=== PATIENT | female | born 1985 | race Caucasian/White ===

== ENCOUNTER → 2016-09-24 | Outpatient (CLI) | payer OTHER ==
--- NOTE | 2016-09-25 07:04 | MM ---
Reason for exam: clinical finding. Baseline mammogram. Indicated problem(s): palpable abnormality and pain in the right breast. Physical Findings: Nurse did not find any significant physical abnormalities on exam. MG 3D Diag Mammo W/Cad BLAS Bilateral CC and MLO view(s) were taken. The breast tissue is extremely dense which could obscure a lesion on mammography. Palpable marker at 1 o'clock on the right breast. Dense tissues on both sides. These results were verbally communicated with the patient and result sheet given to the patient on 09/24/16. ASSESSMENT: Incomplete: need additional imaging evaluation, BI-RAD 0 RECOMMENDATION: Ultrasound of the right breast. (targeted to palpable)
--- NOTE | 2016-09-25 07:07 | USB ---
Reason for exam: additional evaluation requested from abnormal screening. US Breast Limited RT Right breast ultrasound demonstrates a 0.3 x 0.3 x 0.1cm oval lesion too small to characterize at 12:30. Palpable marker at 12:30. Scanning from 11-3 o'clock. Otherwise, no solid or cystic lesion is seeen. Dense tissues are demonstrated. These results were verbally communicated with the patient and result sheet given to the patient on 09/24/16. ASSESSMENT: Benign, BI-RAD 2 RECOMMENDATION: Routine screening mammogram of both breasts at age 40. (unless clinical indication to start sooner) Manage on a clinical basis with regard to any suspicious palpable areas.
== END | disposition home or self-care (01) ==
LOC: RADMAMWWP 13:45
PROVIDERS: ATTEND Family Medicine
DX: N63 Unspecified lump in breast (principal); N64.4 Mastodynia
CPT/HCPCS: 76642; G0204; G0279

== ENCOUNTER → 2016-11-13 | Outpatient (CLI) | payer OTHER ==
--- NOTE | 2016-11-13 17:42 | MR ---
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 There is no evidence of acute ischemia. The ventricles, basal cisterns, and sulci overlying the conv exities are consistent with the patient's age. There is no mass effect. Cerebellar tonsils are low-lying in position measuring approximately 4 mm below the foramen magnum. T here is no tonsillar beaking. Sella turcica has a normal appearance. Changes of chronic sinusitis noted. No sizable areas of abnormal signal within the white matter. No cerebellopontine angle mass. IMPRESSION: 1. Low-lying cerebellar tonsils measuring 4 mm below the level of the foramen magnum. Correlate clini sixto. No tonsillar beaking. 2. Changes of mild chronic sinusitis
== END ==
LOC: RADMRIMAIN 14:59
PROVIDERS: ATTEND Nurse Practitioner Women's Health
DX: Q07.00 Arnold-Chiari syndrome without spina bifida or hydrocephalus (principal)
CPT/HCPCS: 70551

== ENCOUNTER 2017-03-21 11:31 | Emergency (ER) | payer OTHER ==
[2017-03-21 11:38] VITALS: RESP 18
[2017-03-21] MEDS ORDERED: SODIUM CHLORIDE 0.9% 500 ML IV STA (11:45)
--- NOTE | 2017-03-21 11:57 | ED ---
General Adult HPI - General Chief complaint: Dizziness Stated complaint: DIZZINESS, FAST HEART RATE Time Seen by Provider: 03/21/17 11:35 Source: patient, RN notes reviewed Mode of arrival: wheelchair Limitations: no limitations - History of Present Illness Initial comments: This is a 31-year-old female presents emergency Department stating that she has been dizzy for the last 5 days and feeling her heart race. Patient states she' s here today because she brought her mother to the emergency department and thought all she is here she should be checked out. Patient denies any chest pain or shortness of breath. Patient states she went to urgent care couple days ago and they stated that she was dehydrated since she's been drinking quite a bit of water so she doesn't believe she is dehydrated and more but she still is dizzy and having palpitations. Patient denies any fever chills or cough. Patient denies abdominal pain patient denies nausea vomiting diarrhea. Patient denies any recent fever chills or cough. Patient denies any near syncopal episode. - Related Data Home Medications Medication Instructions Recorded Confirmed HYDROcodone/APAP 10-325MG [[place] 0.5 - 1 tab PO TID PRN 12/25/13 03/21/17 10-325] Diphenox-Atrop 2.5-0.025 mg 1 tab PO QID PRN 09/15/15 03/21/17 [Lomotil] Ibuprofen [Motrin] 1,200 mg PO DAILY PRN 03/21/17 03/21/17 Probiotic/Prebiotic/Cranberry 1 tab PO DAILY 03/21/17 03/21/17 diphenhydrAMINE [Benadryl] 25 mg PO QID PRN 03/21/17 03/21/17 Allergies Allergy/AdvReac Type Severity Reaction Status Date / Time adhesive Allergy Rash/Hives Verified 03/21/17 11:52 Penicillins Allergy Rash/Hives Verified 03/21/17 11:52 tramadol Allergy Unknown Verified 03/21/17 11:52 aspirin AdvReac Nausea & Verified 03/21/17 11:52 Vomiting & Diarrhea Sulfa (Sulfonamide AdvReac Nausea & Verified 03/21/17 11:52 Antibiotics) Vomiting sulfamethoxazole AdvReac Nausea & Verified 03/21/17 11:52 [From Bactrim] Vomiting trimethobenzamide HCl AdvReac Nausea & Verified 03/21/17 11:52 [From Tigan] Vomiting trimethoprim [From Bactrim] AdvReac Nausea & Verified 03/21/17 11:52 Vomiting Review of Systems ROS Statement: Those systems with pertinent positive or pertinent negative responses have been documented in the HPI. ROS Other: All systems not noted in ROS Statement are negative. Past Medical History Past Medical History: Asthma, Chest Pain / Angina, GERD/Reflux, Neurologic Disorder, Osteoarthritis (OA), Skin Disorder Additional Past Medical History / Comment(s): HYPOTENSIVE History of Any Multi-Drug Resistant Organisms: None Reported Past Surgical History: Adenoidectomy, Appendectomy, Cholecystectomy, Tonsillectomy, Tubal Ligation Past Anesthesia/Blood Transfusion Reactions: No Reported Reaction Past Psychological History: Anxiety, Depression Smoking Status: Current every day smoker Past Alcohol Use History: None Reported Past Drug Use History: None Reported General Exam - General Exam Comments Initial Comments: GENERAL: Patient is well-developed and well-nourished. Patient is nontoxic and well- hydrated and is in no acute distress. ENT: Neck is soft and supple. No significant lymphadenopathy is noted. Oropharynx is clear. Moist mucous membranes. Neck has full range of motion without eliciting any pain. EYES: The sclera were anicteric and conjunctiva were pink and moist. Extraocular movements were intact and pupils were equal round and reactive to light. Eyelids were unremarkable. PULMONARY: Unlabored respirations. Good breath sounds bilaterally. No audible rales rhonchi or wheezing was noted. CARDIOVASCULAR: Heart is racing at about 110 beats a minute ABDOMEN: Soft and nontender with normal bowel sounds. No palpable organomegaly was noted. There is no palpable pulsatile mass. SKIN: Skin is clear with no lesions or rashes and otherwise unremarkable. NEUROLOGIC: Patient is alert and oriented x3. Cranial nerves II through XII are grossly intact. Motor and sensory are also intact. Normal speech, volume and content. Symmetrical smile. MUSCULOSKELETAL: Normal extremities with adequate strength and full range of motion. No lower extremity swelling or edema. No calf tenderness. LYMPHATICS: No significant lymphadenopathy is noted PSYCHIATRIC: Normal psychiatric evaluation. Normal interpersonal interactions appears functionally intact in deals appropriately with others. Patient appears anxious. Limitations: no limitations Course Vital Signs 03/21/17 11:36 Temperature 98.6 F Pulse Rate 110 H Respiratory 18 Rate Blood Pressure 113/62 O2 Sat by Pulse 99 Oximetry Medical Decision Making - Medical Decision Making EKG shows normal sinus rhythm at 87 bpm AK interval is 144 Gladys is 72 QT interval 356 QTC is 428. Patient's EKG shows no ST segment elevation or depression or T wave abnormalities are noted. - Lab Data Result diagrams: 03/21/17 12:00 03/21/17 12:00 Lab Results 03/21/17 03/21/17 03/21/17 Range/Units 12:00 12:00 12:00 WBC 6.4 (3.8-10.6) k/uL RBC 4.50 (3.80-5.40) m/uL Hgb 14.8 (11.4-16.0) gm/dL Hct 42.8 (34.0-46.0) % MCV 95.1 (80.0-100.0) fL MCH 33.0 (25.0-35.0) pg MCHC 34.7 (31.0-37.0) g/dL RDW 12.9 (11.5-15.5) % Plt Count 283 (150-450) k/uL Neutrophils % 54 % Lymphocytes % 36 % Monocytes % 5 % Eosinophils % 1 % Basophils % 0 % Neutrophils # 3.5 (1.3-7.7) k/uL Lymphocytes # 2.4 (1.0-4.8) k/uL Monocytes # 0.3 (0-1.0) k/uL Eosinophils # 0.1 (0-0.7) k/uL Basophils # 0.0 (0-0.2) k/uL Sodium 141 (137-145) mmol/L Potassium 3.8 (3.5-5.1) mmol/L Chloride 108 H (98-107) mmol/L Carbon Dioxide 25 (22-30) mmol/L Anion Gap 8 mmol/L BUN 9 (7-17) mg/dL Creatinine 0.51 L (0.52-1.04) mg/dL Est GFR (MDRD) Af Amer >60 (>60 ml/min/1.73 sqM) Est GFR (MDRD) Non-Af >60 (>60 ml/min/1.73 sqM) Glucose 90 (74-99) mg/dL Calcium 9.7 (8.4-10.2) mg/dL Troponin I <0.012 (0.000-0.034) ng/mL TSH 1.340 (0.465-4.680) mIU/L Free T4 1.38 (0.78-2.19) ng/dL Urine Color Urine Appearance (Clear) Urine pH (5.0-8.0) Ur Specific [place] (1.001-1.035) Urine Protein (Negative) Urine Glucose (UA) (Negative) Urine Ketones (Negative) Urine Blood (Negative) Urine Nitrite (Negative) Urine Bilirubin (Negative) Urine Urobilinogen (<2.0) mg/dL Ur Leukocyte Esterase (Negative) Urine WBC (0-5) /hpf Ur Squamous Epith Cells (0-4) /hpf Amorphous Sediment (None) /hpf Urine Bacteria (None) /hpf Urine HCG, Qual (Not Detectd) Urine Opiates Screen (NotDetected) Ur Oxycodone Screen (NotDetected) Urine Methadone Screen (NotDetected) Ur Propoxyphene Screen (NotDetected) Ur Barbiturates Screen (NotDetected) U Tricyclic Antidepress (NotDetected) Ur Phencyclidine Scrn (NotDetected) Ur Amphetamines Screen (NotDetected) U Methamphetamines Scrn (NotDetected) U Benzodiazepines Scrn (NotDetected) Urine Cocaine Screen (NotDetected) U Marijuana (THC) Screen (NotDetected) 03/21/17 03/21/17 Range/Units 12:00 12:00 WBC (3.8-10.6) k/uL RBC (3.80-5.40) m/uL Hgb (11.4-16.0) gm/dL Hct (34.0-46.0) % MCV (80.0-100.0) fL MCH (25.0-35.0) pg MCHC (31.0-37.0) g/dL RDW (11.5-15.5) % Plt Count (150-450) k/uL Neutrophils % % Lymphocytes % % Monocytes % % Eosinophils % % Basophils % % Neutrophils # (1.3-7.7) k/uL Lymphocytes # (1.0-4.8) k/uL Monocytes # (0-1.0) k/uL Eosinophils # (0-0.7) k/uL Basophils # (0-0.2) k/uL Sodium (137-145) mmol/L Potassium (3.5-5.1) mmol/L Chloride (98-107) mmol/L Carbon Dioxide (22-30) mmol/L Anion Gap mmol/L BUN (7-17) mg/dL Creatinine (0.52-1.04) mg/dL Est GFR (MDRD) Af Amer (>60 ml/min/1.73 sqM) Est GFR (MDRD) Non-Af (>60 ml/min/1.73 sqM) Glucose (74-99) mg/dL Calcium (8.4-10.2) mg/dL Troponin I (0.000-0.034) ng/mL TSH (0.465-4.680) mIU/L Free T4 (0.78-2.19) ng/dL Urine Color Light Yellow Urine Appearance Cloudy H (Clear) Urine pH 7.5 (5.0-8.0) Ur Specific [place] 1.004 (1.001-1.035) Urine Protein Negative (Negative) Urine Glucose (UA) Negative (Negative) Urine Ketones Negative (Negative) Urine Blood Negative (Negative) Urine Nitrite Negative (Negative) Urine Bilirubin Negative (Negative) Urine Urobilinogen <2.0 (<2.0) mg/dL Ur Leukocyte Esterase Negative (Negative) Urine WBC 1 (0-5) /hpf Ur Squamous Epith Cells 3 (0-4) /hpf Amorphous Sediment Few H (None) /hpf Urine Bacteria Rare H (None) /hpf Urine HCG, Qual Not Detected (Not Detectd) Urine Opiates Screen Detected H (NotDetected) Ur Oxycodone Screen Not Detected (NotDetected) Urine Methadone Screen Not Detected (NotDetected) Ur Propoxyphene Screen Not Detected (NotDetected) Ur Barbiturates Screen Not Detected (NotDetected) U Tricyclic Antidepress Not Detected (NotDetected) Ur Phencyclidine Scrn Not Detected (NotDetected) Ur Amphetamines Screen Not Detected (NotDetected) U Methamphetamines Scrn Not Detected (NotDetected) U Benzodiazepines Scrn Not Detected (NotDetected) Urine Cocaine Screen Not Detected (NotDetected) U Marijuana (THC) Screen Not Detected (NotDetected) Disposition Clinical Impression: Palpitations Disposition: HOME SELF-CARE Condition: Good Instructions: Palpitations (ED) Referrals: Flavio Del Real Jr, DO [Primary Care Provider] - 1-2 days
[2017-03-21 12:21] LABS: Basophils % (A) 0 %; CH 32.8; CHCM 34.6; Eosinophils # (A) 0.1 k/uL (0-0.7); Eosinophils % (A) 1 %; HCT 42.8 % (34.0-46.0); HDW 2.14; HGB 14.8 gm/dL (11.4-16.0); Luc # (Auto) 0.15; Luc % (Auto) 2; Lymphocytes # (A) 2.4 k/uL (1.0-4.8); Lymphocytes % (A) 36 %; MCHC 34.7 g/dL (31.0-37.0); MCV 95.1 fL (80.0-100.0); Mean Platelet Volume 6.9; Monocytes # (A) 0.3 k/uL (0-1.0); Monocytes % (A) 5 %; Neutrophils # (A) 3.5 k/uL (1.3-7.7); Neutrophils % (A) 54 %; RDW 12.9 % (11.5-15.5); WBC 6.4 k/uL (3.8-10.6); WBC (Perox) 6.67
--- NOTE | 2017-03-21 12:24 | XR ---
EXAMINATION TYPE: XR chest 2V DATE OF EXAM: 03/21/2017 COMPARISON: Chest x-ray September 20, 2009. HISTORY: Palpitations. TECHNIQUE: Frontal and lateral views of the chest are obtained. FINDINGS: There is no focal air space opacity, pleural effusion, or pneumothorax seen. The cardiac silhouette size is within normal limits. The osseous structures are intact. Cholecystectomy clips a re noted on lateral view. IMPRESSION: No acute cardiopulmonary process.
[2017-03-21 12:29] LABS: Anion Gap 8 mmol/L; Blood Urea Nitrogen 9 mg/dL (7-17); Calcium 9.7 mg/dL (8.4-10.2); Carbon Dioxide 25 mmol/L (22-30); Chloride 108 mmol/L (98-107); Glucose 90 mg/dL (74-99); Non-African American GFR(MDRD) >60 (>60 ml/min/1.73 sqM); Potassium 3.8 mmol/L (3.5-5.1); Sodium 141 mmol/L (137-145)
[2017-03-21 12:30] LABS: Amorphous Sediment,Urine Few /hpf; Appearance,Urine Cloudy (Clear); Bacteria,Urine Rare /hpf; Bilirubin,Urine Negative (Negative); Glucose,Urine (UA) Negative (Negative); Ketones,Urine Negative (Negative); Leukocyte Esterase,Urine Negative (Negative); Nitrite,Urine Negative (Negative); PH, Urine 7.5 (5.0-8.0); Particle Count 4209; Protein,Urine Negative (Negative); Specific Gravity,Urine 1.004 (1.001-1.035); Squamous Epithelial Cell,Urine 3 /hpf (0-4); UA Billing (MACRO vs. MICRO) MICRO; Urobilinogen,Urine <2.0 mg/dL (<2.0); WBC,Urine 1 /hpf (0-5)
[2017-03-21 13:35] VITALS: BP 98/57; PULSE 78; TEMP 98.9
== END 2017-03-21 13:36 | disposition home or self-care (01) ==
LOC: EC 11:31
DX: R00.2 Palpitations (principal); R42 Dizziness and giddiness; F17.200 Nicotine dependence, unspecified, uncomplicated; Z79.899 Other long term (current) drug therapy; Z88.0 Allergy status to penicillin; Z88.1 Allergy status to other antibiotic agents; Z88.2 Allergy status to sulfonamides; Z88.5 Allergy status to narcotic agent; Z88.6 Allergy status to analgesic agent; Z88.8 Allergy status to other drugs, medicaments and biological substances; Z91.09 Other allergy status, other than to drugs and biological substances
CPT/HCPCS: 36415; 71020; 80048; 80306; 81001; 81025; 84439; 84443; 84484; 85025; 93005; 96360; 99284

== ENCOUNTER → 2018-04-08 | Outpatient (CLI) | payer OTHER ==
[2018-04-08 09:53] LABS: Basophils % (A) 0 %; Eosinophils # (A) 0.1 k/uL (0-0.7); Eosinophils % (A) 2 %; HGB 15.2 gm/dL (11.4-16.0); Lymphocytes # (A) 2.1 k/uL (1.0-4.8); Lymphocytes % (A) 31 %; MCH 31.7 pg (25.0-35.0); MCHC 32.3 g/dL (31.0-37.0); MCV 98.1 fL (80.0-100.0); Mean Platelet Volume 6.4; Monocytes # (A) 0.3 k/uL (0-1.0); Monocytes % (A) 5 %; Neutrophils # (A) 4.1 k/uL (1.3-7.7); Neutrophils % (A) 61 %; Platelet Count 359 k/uL (150-450); RBC 4.79 m/uL (3.80-5.40); RDW 12.4 % (11.5-15.5); WBC 6.8 k/uL (3.8-10.6)
[2018-04-08 10:00] LABS: ALT 22 U/L (9-52); AST 20 U/L (14-36); Anion Gap 9 mmol/L; Blood Urea Nitrogen 15 mg/dL (7-17); Carbon Dioxide 22 mmol/L (22-30); Chloride 110 mmol/L (98-107); Cholesterol 157 mg/dL (<200); Glucose 90 mg/dL (74-99); HDL Cholesterol 65 mg/dL (40-60); LDL Cholesterol,Calculated 78 mg/dL (0-99); Potassium 4.6 mmol/L (3.5-5.1); Sodium 141 mmol/L (137-145); Triglycerides 68 mg/dL (<150)
== END | disposition home or self-care (01) ==
LOC: LABWHC1 08:56
PROVIDERS: ATTEND Family Medicine
DX: F41.1 Generalized anxiety disorder (principal); M79.7 Fibromyalgia; R63.0 Anorexia
CPT/HCPCS: 36415; 80048; 80061; 84443; 84450; 84460; 85025

== ENCOUNTER → 2019-01-06 | Outpatient (CLI) | payer OTHER ==
--- NOTE | 2019-01-06 11:08 | MM ---
Reason for exam: clinical finding. Last mammogram was performed 2 years and 3 months ago. History: Family history of breast cancer in grandmother at age 19. Excisional biopsy of the right breast, 2003. Physical Findings: Nurse Summary: less than 0.5cm nodule in the right breast at 9 o'clock (nurse kp). MG 3D Diag Mammo W/Cad RT CC and MLO view(s) were taken of the right breast. Prior study comparison: September 24, 2016, bilateral MG 3d diag mammo w/cad BLAS. The breast tissue is extremely dense which could obscure a lesion on mammography. No suspicious abnormality. These results were verbally communicated with the patient and result sheet given to the patient on 01/06/19. ASSESSMENT: Negative, BI-RAD 1 RECOMMENDATION: Routine screening mammogram of both breasts at age 40. Ultrasound ordered by ordering physician regarding palpable.
--- NOTE | 2019-01-06 11:09 | USB ---
Reason for exam: clinical finding. History: Family history of breast cancer in grandmother at age 19. Excisional biopsy of the right breast, 2003. US Breast RT Right complete breast ultrasound includes all four quadrants, the retroareolar region and axilla. Finding demonstrates no cystic or solid lesion seen. Extremely dense breast tissue noted throughout. These results were verbally communicated with the patient and result sheet given to the patient on 01/06/19. ASSESSMENT: Negative, BI-RAD 1 RECOMMENDATION: Routine screening mammogram of both breasts at age 40. 40 or sooner if clinically indicated.
== END | disposition home or self-care (01) ==
LOC: RADMAMWWP 09:15
PROVIDERS: ATTEND Family Medicine
DX: N64.4 Mastodynia (principal); N63.41 Unspecified lump in right breast, subareolar; Z80.3 Family history of malignant neoplasm of breast
CPT/HCPCS: 77065; 76641; G0279; 77061

== ENCOUNTER → 2019-01-20 | Outpatient (CLI) | payer OTHER ==
--- NOTE | 2019-01-20 10:53 | XR ---
EXAMINATION TYPE: XR cervical spine comp DATE OF EXAM: 01/20/2019 TECHNIQUE: Frontal, lateral, oblique, swimmers, and open mouth view of the cervical spine are obtaine d. 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 The pre-vertebral soft t issue appears within normal limits. The C1-C2 articulation is within normal limits on the open mouth view. The oblique images are within normal limits. IMPRESSION: No acute fracture or malalignment is seen in the cervical spine.
== END | disposition home or self-care (01) ==
LOC: RADXRMAIN 09:28
PROVIDERS: ATTEND Family Medicine
DX: M50.11 Cervical disc disorder with radiculopathy, high cervical region (principal)
CPT/HCPCS: 72050

== ENCOUNTER 2019-03-08 18:39 | Emergency (ER) | payer OTHER ==
[2019-03-08] MEDS ORDERED: HYDROcodone/APAP 5-325MG 1 EACH TAB PO STA (18:57)
[2019-03-08] MEDS ORDERED: IBUPROFEN 800 MG TAB PO STA (18:57)
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
[2019-03-08 19:04] VITALS: RESP 18
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
[2019-03-08 21:05] VITALS: BP 100/61; PULSE 91; TEMP 98.5
== END 2019-03-08 21:05 | disposition home or self-care (01) ==
LOC: EC 18:39
DX: S13.4XXA Sprain of ligaments of cervical spine, initial encounter (principal); M25.559 Pain in unspecified hip; M79.605 Pain in left leg; M79.604 Pain in right leg; M79.673 Pain in unspecified foot; F41.9 Anxiety disorder, unspecified; F32.9 Major depressive disorder, single episode, unspecified; F17.200 Nicotine dependence, unspecified, uncomplicated; Z79.899 Other long term (current) drug therapy; Z91.048 Other nonmedicinal substance allergy status; Z88.0 Allergy status to penicillin; Z88.6 Allergy status to analgesic agent; Z88.2 Allergy status to sulfonamides; Z88.8 Allergy status to other drugs, medicaments and biological substances; Z98.51 Tubal ligation status; V89.2XXA Person injured in unspecified motor-vehicle accident, traffic, initial encounter; Y92.410 Unspecified street and highway as the place of occurrence of the external cause
CPT/HCPCS: 70450; 71046; 72125; 72170; 99284

== ENCOUNTER → 2019-04-17 | Outpatient (CLI) | payer OTHER ==
--- NOTE | 2019-04-18 10:56 | US ---
EXAMINATION TYPE: US extremity nonvasculr ltd LT DATE OF EXAM: 04/17/2019 COMPARISON: NONE CLINICAL HISTORY: M71.22 SYNOVAIAL CYST. fullness left pop fossa. Patient feels fullness left pop fossa. The left pop fossa was scanned. There is no fluid collection i dentified. The pop vein is patent. No abnormality seen. IMPRESSION: 1. No suspicious present abnormality left posterior popliteal fossa.
== END | disposition home or self-care (01) ==
LOC: RADUSWWP 15:31
PROVIDERS: ATTEND Family Medicine
DX: M25.562 Pain in left knee (principal); M71.22 Synovial cyst of popliteal space [Baker], left knee; Z88.2 Allergy status to sulfonamides; Z88.6 Allergy status to analgesic agent; Z88.0 Allergy status to penicillin; Z88.8 Allergy status to other drugs, medicaments and biological substances

== ENCOUNTER → 2019-05-20 | Outpatient (CLI) | payer OTHER ==
--- NOTE | 2019-05-22 11:23 | MR ---
EXAMINATION TYPE: MR knee LT wo con DATE OF EXAM: 05/20/2019 COMPARISON: None HISTORY: Lt knee pain, no trauma TECHNIQUE: Multiplanar, multisequence imaging of the left knee is performed without IV contrast. FINDINGS: MEDIAL MENISCUS: Anterior and posterior horns are intact without tear. LATERAL MENISCUS: Anterior and posterior horns are intact without tear. CRUCIATE LIGAMENTS: The anterior and posterior cruciate ligaments are intact, however there is some i ncreased signal of the distal and mid fibers of the anterior cruciate ligament indicative of sprain, appearing mid grade as there is involvement of the anterior to posterior fibers throughout without di stinct tear. COLLATERAL LIGAMENTS: The medial collateral ligament and lateral collateral ligament complex are inta ct and unremarkable. EXTENSOR MECHANISM: Visualized quadriceps and patellar tendons are intact. EFFUSION: No significant suprapatellar joint effusion. POPLITEAL CYST: No popliteal/wang cyst. Trace amount of fluid is seen between the medial head of th e gastric anemias and semimembranosus without distinct fluid collection. TRICOMPARTMENT SPACES: Joint spaces are maintained. Very small superior patellar pole osteophyte is s een. CARTILAGE: There is a focal fissure in the medial patellar facet with undermining measuring 4 mm. Fis sure is also seen of the lateral aspect of the trochlea cartilage. There is some very mild signal het erogeneity of the medial compartment cartilage without full-thickness or partial-thickness defect. No full-thickness defect is seen of the lateral compartment cartilage. BONE MARROW SIGNAL: No focal abnormal marrow signal is appreciated. OTHER: There is increased signal within the lateral head of the gastrocnemius without distinct tear suggesting myositis and/or strain. IMPRESSION: 1. Increased signal throughout the lateral head of the gastrocnemius indicating myositis and/or muscu lar strain. No discrete tear and the visualized portions. 2. Mid grade injury cruciate ligament sprain without focal tear. 3. Mild patellofemoral compartment arthrosis and mild lateral compartment and patellofemoral compartm ent chondrosis.
== END | disposition home or self-care (01) ==
LOC: RADMRIMAIN 09:54
PROVIDERS: ATTEND Family Medicine
DX: M17.12 Unilateral primary osteoarthritis, left knee (principal); M25.562 Pain in left knee

== ENCOUNTER → 2019-06-04 | Outpatient (CLI) | payer OTHER ==
--- NOTE | 2019-06-04 10:20 | XR ---
EXAMINATION TYPE: XR chest 2V DATE OF EXAM: 06/04/2019 COMPARISON: Chest x-ray March 08, 2019. HISTORY: Cough for 3 weeks. TECHNIQUE: Frontal and lateral views of the chest are obtained. FINDINGS: There is no focal air space opacity, pleural effusion, or pneumothorax seen. The cardiac silhouette size is within normal limits. The osseous structures are intact. Cholecystectomy clips a re noted. IMPRESSION: No suspicious acute airspace opacity. No significant change from prior.
== END | disposition home or self-care (01) ==
LOC: RADXRMAIN 09:57
PROVIDERS: ATTEND Nurse Practitioner Family
DX: R05 Cough (principal); J20.9 Acute bronchitis, unspecified
CPT/HCPCS: 71046

== ENCOUNTER → 2020-02-24 | Outpatient (CLI) | payer OTHER ==
--- NOTE | 2020-02-24 11:31 | MM ---
Reason for exam: additional evaluation requested from prior study. Last mammogram was performed 1 year and 2 months ago. History: Family history of breast cancer in grandmother at age 19. Excisional biopsy of the right breast, 2003. Physical Findings: Nurse did not find any significant physical abnormalities on exam. MG 3D Diag Mammo W/Cad BLAS Bilateral CC and MLO view(s) were taken. Prior study comparison: January 06, 2019, right breast MG 3d diag mammo w/cad RT. September 24, 2016, bilateral MG 3d diag mammo w/cad BLAS. The breast tissue is heterogeneously dense. This may lower the sensitivity of mammography. There is chronic nodularity bilaterally. No significant new findings when compared with previous films. These results were verbally communicated with the patient and result sheet given to the patient on 02/24/20. ASSESSMENT: Negative, BI-RAD 1 RECOMMENDATION: Routine screening mammogram of both breasts in 1 year.
== END | disposition home or self-care (01) ==
LOC: RADMAMWWP 09:38
PROVIDERS: ATTEND Surgery
DX: N64.4 Mastodynia (principal)
CPT/HCPCS: 77066; G0279; 77062

== ENCOUNTER 2022-01-18 17:33 | Outpatient (CLI) | payer OTHER | END 2022-01-18 17:46 | disposition home or self-care (01) | LOC: RADUSWWP 17:33 | PROVIDERS: ATTEND Pediatrics Adolescent Medicine | DX: Z53.9 Procedure and treatment not carried out, unspecified reason (principal) ==

== ENCOUNTER → 2022-09-25 | Outpatient (CLI) | payer BC, OTHER ==
--- NOTE | 2022-09-26 08:20 | MM ---
Reason for Exam: Screening (asymptomatic). Last mammogram was performed 2 year(s) and 6 month(s) ago. Patient History: Menarche at age 11. First Full-Term at age 20. Premenopausal. 2004, Excisional Biopsy on the Right side. Maternal grandmother had breast cancer, age 19. Risk Values: Sunitha 5 year model risk: 0.6%. NCI Lifetime model risk: 12.2%. Prior Study Comparison: 09/24/2016 Bilateral Diagnostic Mammogram, [facility]. 01/06/2019 Right Diagnostic Mammogram, [facility]. 02/24/2020 Bilateral Diagnostic Mammogram, [facility]. Tissue Density: The breast tissue is heterogeneously dense. This may lower the sensitivity of mammography. Findings: Analyzed By CAD. There is no suspicious group of microcalcifications or new suspicious mass in either breast. Overall Assessment: Negative, BI-RAD 1 Management: Screening Mammogram of both breasts in 1 year. A clinical breast exam by your physician is recommended on an annual basis and results should be correlated with mammographic findings. Electronically signed and approved by: Justin Salazar M.D. Radiologis
== END | disposition home or self-care (01) ==
LOC: RADMAMWWP 07:23
PROVIDERS: ATTEND Obstetrics & Gynecology
DX: Z12.31 Encounter for screening mammogram for malignant neoplasm of breast (principal); Z80.3 Family history of malignant neoplasm of breast
CPT/HCPCS: 77063; 77067

== ENCOUNTER → 2024-12-11 | Outpatient (CLI) | payer OTHER ==
--- NOTE | 2024-12-11 08:46 | MM ---
Reason for Exam: Screening (asymptomatic). Last mammogram was performed 2 year(s) and 3 month(s) ago. Patient History: Menarche at age 11. First Full-Term at age 20. Premenopausal. 2004, Excisional Biopsy on the Right side. Maternal grandmother had breast cancer, age 19. Risk Values: Sunitha 5 year model risk: 0.8%. NCI Lifetime model risk: 12.1%. Prior Study Comparison: 01/06/2019 Right Diagnostic Mammogram, [facility]. 02/24/2020 Bilateral Diagnostic Mammogram, [facility]. 09/25/2022 Bilateral MG 3D screening mammo w/cad, [facility]. Tissue Density: The breasts are extremely dense, which lowers the sensitivity of mammography. Findings: Analyzed By CAD. There is no suspicious group of microcalcifications or new suspicious mass in either breast. Overall Assessment: Benign, BI-RAD 2 Management: Screening Mammogram of both breasts in 1 year. . Patient should continue monthly self-breast exams. A clinical breast exam by your physician is recommended on an annual basis. This exam should not preclude additional follow-up of suspicious palpable abnormalities. Note on Sunitha scores and lifetime risk: 1. A Sunitha score greater than 3% is considered moderate risk. If this is the case, consider specialist referral to assess eligibility for a risk reducing agent. 2. If overall lifetime risk for the development of breast cancer is 20% or higher, the patient may qualify for future screening with alternating mammogram and breast MRI. [facility], , 12/11/2024 8:43 AM. Electronically signed and approved by: Sidney Luna M.D. Radiologis
== END | disposition home or self-care (01) ==
LOC: RADMAMWWP 08:12
PROVIDERS: ATTEND Family Medicine
DX: Z12.31 Encounter for screening mammogram for malignant neoplasm of breast (principal); R92.343 Mammographic extreme density, bilateral breasts; Z80.3 Family history of malignant neoplasm of breast
CPT/HCPCS: 77063; 77067